=== PATIENT | female | born 2005 | race Two or more races ===

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

== ENCOUNTER 2023-06-03 15:41 | Outpatient (REF) | payer MEDICAID, SELFPAY ==
[2023-06-04 05:53] LABS: CT PCR NOT DETECTED (Not Detect.); NG PCR NOT DETECTED (Not Detect.)
== END 2023-06-03 15:42 | disposition home or self-care (01) ==
LOC: HO.HHCL 15:41
PROVIDERS: Visit Provider Internal Medicine
DX: Z00.00 Encounter for general adult medical examination without abnormal findings (principal); Z11.3 Encounter for screening for infections with a predominantly sexual mode of transmission
CPT/HCPCS: 0353U

== ENCOUNTER 2023-07-27 09:55 | Emergency (ER) | payer MEDICAID, SELFPAY ==
--- NOTE | ~2023-07-27 | US_ITS ---
EXAMINATION: US PELVIS CLINICAL INFORMATION: Vaginal bleeding/pelvic pain, rule out cyst COMPARISON: None available. TECHNIQUE: Ultrasound of the pelvis is performed using both transabdominal and transvaginal transducers along with Doppler. Transvaginal imaging is performed due to inadequate visualization transabdominally. FINDINGS: Uterus: The uterus is anteverted and measures 7.5 x 3.2 x 3.5 cm. The double wall endometrial thickness is 5 mm, homogeneous, without focal endometrial lesion identified. The uterus is smooth in contour and has normal myometrial echogenicity. No visible fibroid. Adnexa: Both ovaries are visualized. There is normal color flow to the adnexa. There is no ovarian torsion. There is no pelvic ascites or fluid collection. Right ovary measures 3.2 x 2.3 x 1.6 cm. Simple, unilocular anechoic paraovarian cyst measuring 1.7 x 1.7 x 1.6 cm for which no follow-up imaging is recommended. Left ovary measures 3.1 x 1.9 x 2.1 cm. Physiologic ovarian follicles for which no follow-up imaging is recommended. US/US pelvic and transvaginal IMPRESSION: Normal pelvic ultrasound without findings to explain abnormal uterine bleeding or pelvic pain.
[2023-07-27 10:16] VITALS: BP 102/68; PULSE 83; RESP 20; TEMP 36.6; O2SAT 100; BMI 19.6
[2023-07-27 10:33] VITALS: BP 130/70; PULSE 79; RESP 16; TEMP 36.6; O2SAT 97
--- NOTE | 2023-07-27 10:56 | ED_ITS ---
HPI - General Chief complaint: Vaginal Bleeding Stated complaint: Abd pain Time Seen by Provider: 07/27/23 10:43 Source: patient and family Mode of arrival: ambulatory Limitations: no limitations History of Present Illness HPI Narrative: 18-year-old female with no known medical history presents the ER with reports of waking with lower abdominal pain, lower back pain and vaginal bleeding this morning. Patient reports she has irregular menses but her last cycle was approximately 1 month ago. She is here with her partner. She is sexually active with 1 male partner. She is not on any contraception. Low suspicion for STI. Has used 1 tampon since waking. Related Data Home Medications Medication Instructions Recorded Confirmed No Known Home Meds 11/27/21 11/27/21 Allergies Allergy/AdvReac Type Severity Reaction Status Date / Time No Known Allergies Allergy Unverified 07/27/23 10:16 seasonal Allergy Unknown Itchy Eyes Uncoded 11/27/21 13:34 Review of Systems 2 Review of Systems: Yes all other systems are reviewed and are negative Constitutional: Constitutional: Reports no additional constitutional complaints, Denies body ache(s), Denies chills, Denies fever(s), Denies headache(s) and Denies weakness Eyes: Eyes: Reports no additional eye complaints and Denies change in vision ENT: Reports system reviewed and no additional complaints, except as documented, Denies dizziness, Denies headache(s), Denies nasal congestion, Denies nasal discharge and Denies neck pain Cardiovascular: Cardiovascular: Reports no additional cardiovascular complaints, Denies chest pain, Denies leg edema and Denies dyspnea Respiratory: Respiratory: Reports no additional respiratory complaints, Denies cough and Denies dyspnea Gastrointestinal: Gastrointestinal: Reports no additional gastrointestinal complaints, Reports abdominal pain, Denies diarrhea, Denies nausea and Denies vomiting Genitourinary: Genitourinary: Reports no additional female genitourinary complaints, Reports abnormal vaginal bleeding and Denies urinary incontinence Musculoskeletal: Musculoskeletal: Reports no additional musculoskeletal complaints, Reports back pain, Denies arthralgias, Denies joint swelling, Denies neck pain, Denies numbness and Denies tingling Integumentary/Breasts: Skin/Breast: Reports system reviewed and no additional complaints, except as docu and Denies rash Neurologic: Reports system reviewed and no additional complaints, except as documented, Denies Abnormal speech present, Denies dizziness, Denies headache(s), Denies numbness, Denies tingling and Denies weakness PMF Past Medical History Attestation statement: The following information was validated with the patient. Source: old records reviewed and nursing notes reviewed Social History Social History Smoked in Last 30 Days: No Use of substances other than those prescribed or required for medical reasons: No Advance Directives: No Advance Directives Information Provided: No Physical Exam 2 Vital Signs: Vital Signs: Last Vital Signs Temp 98 F 07/27/23 10:33 Pulse 79 07/27/23 10:33 Resp 16 07/27/23 10:33 BP 130/70 07/27/23 10:33 Pulse Ox 97 07/27/23 10:33 O2 Del Method Room Air 07/27/23 10:33 BMI result Body Mass Index 19.6 Const: General: cooperative, healthy appearing, comfortable and no acute distress Orientation/consciousness: patient oriented x3 Limitations: no limitations HEENT: Head: Yes normal to inspection Ears: hearing grossly normal bilaterally General nose exam: Normal external nose present Face and sinus: Yes normal facial exam Mouth: Normal oral and palatal mucosa present Throat: Yes posterior oropharynx normal Eyes: General: appearance normal, both eyes and all related structures P upils: Equal, round and reactive pupils present Neck: Neck: Yes normal visual inspection Chest: Chest palpation & inspection: normal inspection of the chest Resp: Effort & Inspection: normal respiratory effort Auscultation: clear to auscultation bilaterally Cardio: Rate: regular rate Rhythm: regular rhythm Peripheral pulses: P eripheral pulses 2+ throughout GI: Inspection: Yes normal to inspection Palpation (GI): Soft to palpation and nontender Auscultation: normal bowel sounds Back/Spine/Pelvis: Thoracic/Lumbar Spine: thoracic and lumbar spine normal to inspection Skin: General skin exam: no rashes or lesions noted Neuro: General: patient oriented x3, no focal motor deficits and normal sensation to monofilament Cranial nerves: Yes Equal, round and reactive pupils present Cognition (Neuro): normal cognition Speech: No Abnormal speech present Gait exam (Neuro): Normal gait present Motor exam (neuro): 5/5 motor strength present throughout Extrem: General: Yes normal to inspection Course Course Course Narrative: Labs are unremarkable. Urine shows no signs of infection and is negative for . Ultrasound is negative for any acute finding. Recommend patient use Motrin or Tylenol for any pain as needed and apply warm compresses to the abdomen and follow-up with gynecology outpatient for any continued symptoms. Patient does not have any concern for STDs at this time. Medical Decision Making Medical Decision Making [facility] Narrative: 18-year-old female with no known medical history presents the ER with reports of waking with lower abdominal pain, lower back pain and vaginal bleeding this morning. Patient reports she has irregular menses but her last cycle was approximately 1 month ago. She is here with her partner. She is sexually active with 1 male partner. She is not on any contraception. Low suspicion for STI. Has used 1 tampon since waking. No focal abdominal pain Will obtain labs, UA, ur preg Differential Diagnosis Differential Diagnoses: The differential diagnosis associated with the presentation includes Dysfunctional uterine bleeding, dysmenorrhea, ectopic Admission/Observation Consideration of admission/observation: Escalation of care including admission/observation considered Lab Data [facility] Lab Attestation statement: I reviewed the patient's lab results. 07/27/23 11:41 07/27/23 11:41 Labs: Lab Results 07/27/23 Range/Units 11:41 WBC 7.5 (4.8-10.8) X10*3/uL RBC 3.83 L (4.20-5.50) X10*6/uL Hgb 11.6 L (12.0-16.0) g/dl Hct 34.2 L (37.0-47.0) % MCV 89.3 (80.0-98.0) fL MCH 30.3 (27.0-33.0) pg MCHC 33.9 (31.0-35.0) g/dl RDW 11.9 (11.0-16.0) % Plt Count 168 (160-400) X10*3/uL MPV 11.1 (9.4-12.3) fL Immature Gran % (Auto) 0.4 (0.0-0.4) % Neut % (Auto) 78.2 H (45-73) % Lymph % (Auto) 13.1 L (20-40) % [place] % (Auto) 7.6 (2-11) % Eos % (Auto) 0.3 (0-4) % Baso % (Auto) 0.4 (0-2) % Lymph # (Auto) 1.0 L (1.2-4.9) X10*3/uL [place] # (Auto) 0.6 (0.1-1.2) X10*3/uL Eos # (Auto) 0.0 (0.0-0.4) X10*3/uL Baso # (Auto) 0.0 (0.0-0.2) X10*3/uL Abs Immat Gran (auto) 0.03 (0.00-0.03) X10*3/uL Absolute Neuts (auto) 5.8 (2.0-8.3) x10*3/uL Absolute Nucleated RBC 0.000 (0.0-0.012) X10*3/uL Nucleated RBC % (auto) 0.0 (0.0-0.2) /100WBC Sodium 140 (135-145) mmol/L Potassium 3.9 (3.3-5.1) mmol/L Chloride 110 H (96-108) mmol/L Carbon Dioxide 23 (22-29) mmol/L Anion Gap 11 L (12-20) BUN 11 (9-16) mg/dL Creatinine 0.66 (0.5-1.4) mg/dL Estim Creat Clear Calc 87.7 Estimated GFR > 60 Random Glucose 94 (60-115) mg/dL Calcium 8.9 (8.4-10.2) mg/dL Beta HCG, Quant < 2 mIU/mL Urine Color Dark Yellow Urine Appearance Turbid Urine pH 5.5 (5.0-9.0) Ur Specific [place] >= 1.030 H (1.005-1.025) Urine Protein 30 (1+) H (Neg-Trace) mg/dL Urine Glucose (UA) Negative (Negative) mg/dL Urine Ketones 15 (Negative) mg/dL Urine Blood Large (3+) H (Negative) Urine Nitrite Negative (Negative) Ur Leukocyte Esterase Negative (Negative) Urine RBC >20 H (0-2) /HPF Urine WBC 0-5 (0-5) /HPF Ur Squamous Epith Cells 3-5 (0-2) /HPF Urine Bacteria 1+ (None Seen) Hyaline Casts 0-2 (0-2) /LPF Urine Test NEGATIVE (NEGATIVE) Independent Interpretation I performed an independent interpretation of an: Ultrasound Interpretation: I independently reviewed the ultrasound agree with the radiology report Radiology Impression Discussion of test interpretation with radiology: I have reviewed the radiologist's reading. Radiologist Impression: [address] [id number] Ultrasound Report Signed Patient: Tyrel Guillermo MR#: [id number] : 2005 Acct:[id number] Age/Sex: 18 / F ADM Date: 07/27/23 Loc: .ED Attending Dr: Ordering Physician: Judy Hilario NP Date of Service: 07/27/23 Procedure(s): US pelvic and transvaginal Accession Number(s): [id number] cc: [facility]; Judy Hilario NP~ EXAMINATION: US PELVIS CLINICAL INFORMATION: Vaginal bleeding/pelvic pain, rule out cyst COMPARISON: None available. TECHNIQUE: Ultrasound of the pelvis is performed using both transabdominal and transvaginal transducers along with Doppler. Transvaginal imaging is performed due to inadequate visualization transabdominally. FINDINGS: Uterus: The uterus is anteverted and measures 7.5 x 3.2 x 3.5 cm. The double wall endometrial thickness is 5 mm, homogeneous, without focal endometrial lesion identified. The uterus is smooth in contour and has normal myometrial echogenicity. No visible fibroid. Adnexa: Both ovaries are visualized. There is normal color flow to the adnexa. There is no ovarian torsion. There is no pelvic ascites or fluid collection. Right ovary measures 3.2 x 2.3 x 1.6 cm. Simple, unilocular anechoic paraovarian cyst measuring 1.7 x 1.7 x 1.6 cm for which no follow-up imaging is recommended. Left ovary measures 3.1 x 1.9 x 2.1 cm. Physiologic ovarian follicles for which no follow-up imaging is recommended. US/US pelvic and transvaginal IMPRESSION: Normal pelvic ultrasound without findings to explain abnormal uterine bleeding or pelvic pain. Independent Historian Clinical information obtained from an independent historian. History obtained from or confirmed by: Friend Tests considered The following testing was considered but not selected: No focal abdominal pain to suggest need for CT abdomen and pelvis Prescription Management I considered prescription management with: Antibiotic Discharge Plan Discharge Clinical Impression: Dysmenorrhea Patient Disposition: Home, Self-Care Instructions: Dysmenorrhea (ED) Additional Instructions: Take Motrin or Tylenol for pain as needed Apply heat to the abdomen Follow-up with your building serviceman for any worsened symptoms Prescriptions: No Action No Known Home Meds Referrals: [facility] [Primary Care Provider] -
[2023-07-27 11:46] LABS: MANUAL DIFF FLAG NO
[2023-07-27 11:47] LABS: Basophils Percent Auto 0.4 % (0-2); Eosinophils Percent Auto 0.3 % (0-4); Hematocrit 34.2 % (37.0-47.0); Hemoglobin 11.6 g/dl (12.0-16.0); Imm Gran Abs Auto 0.03 X10*3/uL (0.00-0.03); Imm Gran Pct Auto 0.4 % (0.0-0.4); Lymphocytes Percent Auto 13.1 % (20-40); Mean Corpuscular HGB Conc 33.9 g/dl (31.0-35.0); Mean Corpuscular Hemoglobin 30.3 pg (27.0-33.0); Mean Corpuscular Volume 89.3 fL (80.0-98.0); Mean Platelet Volume 11.1 fL (9.4-12.3); Monocytes Absolute Auto 0.6 X10*3/uL (0.1-1.2); Monocytes Percent Auto 7.6 % (2-11); Neutrophils Absolute Auto 5.8 x10*3/uL (2.0-8.3); Neutrophils Percent Auto 78.2 % (45-73); Platelet Count 168 X10*3/uL (160-400); Red Blood Count 3.83 X10*6/uL (4.20-5.50); Red Cell Distribution Width 11.9 % (11.0-16.0); White Blood Count 7.5 X10*3/uL (4.8-10.8)
[2023-07-27 11:50] LABS: Appearance Urine Turbid; Color Urine Dark Yellow; Glucose Urine UA Negative (Negative); Leukocyte Esterase Urine Negative (Negative); Nitrite Urine Negative (Negative); PH 5.5 (5.0-9.0); Specific Gravity - Urine >= 1.030 (1.005-1.025); UMIC TRIGGER UACC YES; Urine Blood Large (3+) (Negative); Urine Ketones 15 mg/dL (Negative); Urine Protein 30 (1+) mg/dL (Neg-Trace)
[2023-07-27 11:51] LABS: UPreg QC Valid YES; Urine Pregnancy NEGATIVE (NEGATIVE)
--- NOTE | 2023-07-27 12:00 | PC.NURSE ---
pt brought to ultrasound
[2023-07-27 12:04] LABS: Bacteria Urine 1+ (None Seen); Hyaline Casts Urine 0-2 /LPF (0-2); RBC Urine >20 /HPF (0-2); WBC Urine 0-5 /HPF (0-5)
[2023-07-27 12:05] LABS: Anion Gap 11 (12-20); Blood Urea Nitrogen 11 mg/dL (9-16); Calcium 8.9 mg/dL (8.4-10.2); Carbon Dioxide 23 mmol/L (22-29); Chloride 110 mmol/L (96-108); Creatinine Clr Calc Pharmacy 87.7; Estimated Glomerular Filt Rate > 60; Glucose Random 94 mg/dL (60-115); Potassium 3.9 mmol/L (3.3-5.1); Sodium 140 mmol/L (135-145)
[2023-07-27 12:07] LABS: HCG Quantitative < 2 mIU/mL
--- NOTE | 2023-07-27 13:01 | PC.NURSE ---
remains in ultrasound
== END 2023-07-27 15:27 | disposition home or self-care (01) ==
PROVIDERS: Nurse Practitioner Family; Emergency Provider Emergency Medicine
DX: N94.6 Dysmenorrhea, unspecified (principal); R10.30 Lower abdominal pain, unspecified; M54.50 Low back pain, unspecified; N93.9 Abnormal uterine and vaginal bleeding, unspecified; R10.2 Pelvic and perineal pain; Z79.899 Other long term (current) drug therapy
CPT/HCPCS: 36415; 76830; 76856; 80048; 81001; 81025; 84702; 85025; 99284

== ENCOUNTER 2023-10-25 17:47 | Emergency (ER) | payer MEDICAID, SELFPAY ==
--- NOTE | ~2023-10-25 | US_ITS ---
EXAMINATION: US OBSTETRICAL ULTRASOUND CLINICAL INFORMATION: Reason for Exam pain, +hcg test, vag bleed COMPARISON: 07/27/2023 TECHNIQUE: Sonographic evaluation of the pelvis was performed transabdominally and transvaginally. FINDINGS: There is a single intrauterine gestational sac with visible yolk sac, embryo/fetus, and cardiac activity. There is no significant subchorionic hemorrhage or hematoma. HR: 112 beats per minute. CRL (crown rump length): 0.3 cm (5 weeks 6 days +/- 4 days). EMRE (estimated date of delivery): 06/20/2024 +/- 4 days. MATERNAL ADNEXA: The right maternal ovary measures 3.7 x 2.5 x 3.5 and appears unremarkable. The left maternal ovary measures 2.4 x 2.1 x 1.9 and appears unremarkable. There is no significant maternal adnexal mass. No maternal pelvic ascites. US/US OB <= 14 weeks fetus IMPRESSION: 1. Single intrauterine gestation with ultrasound gestational age of 5 weeks 6 days +/- 4 days. 2. Estimated date of delivery is 06/20/2024 +/- 4 days. 3. No maternal adnexal mass or pelvic ascites.
[2023-10-25 18:25] VITALS: BP 111/73; PULSE 122; RESP 16; TEMP 36.9; O2SAT 98; BMI 19.9
--- NOTE | 2023-10-25 18:28 | ED.PREGNANCY ---
HPI - General Chief complaint: Nausea/Vomiting/Diarrhea Stated complaint: vomiting Time Seen by Provider: 10/26/23 06:37 Source: patient Mode of arrival: ambulatory Limitations: no limitations History of Present Illness ED Provider: Mitzi Maldonado PA-C HPI Narrative: Patient is a 18 year old assigned female at with a history of presenting to the emergency department today with nausea and vomiting. Patient states that over the last few days she has had nausea and vomiting. Patient states that she is , approximately 5 weeks. Patient states that she had some previous spotting but no vaginal bleeding now. Patient denies any dizziness, lightheadedness, abdominal pain, fever, chills, blurry vision, double vision, loss of vision, chest pain, difficulty breathing, shortness of breath, back pain, night sweats, pain with urination, increased urinary frequency, increased urinary urgency, blood in her urine or stool, syncope or a near syncopal episode, recent trauma or falls, bowel incontinence, bladder incontinence, bowel retention, bladder retention, or any other complaints at this time. Onset (ago): day(s) Severity: mild Severity scale (1-10): 2 Relieving factors: none Exacerbating factors: none Associated symptoms: nausea and vomiting Related Data Previous Rx's ?Medication ?Instructions ?Recorded cefuroxime axetil 250 mg tablet 250 mg PO BID 7 days #14 tabs 10/26/23 ondansetron 4 mg disintegrating 4 mg PO Q8H 3 days #9 tabs 10/26/23 tablet pyridoxine (vitamin B6) 10 mg 10 mg PO DAILY #14 tabs 10/26/23 tablet Allergies Allergy/AdvReac Type Severity Reaction Status Date / Time No Known Allergies Allergy Unverified 10/25/23 18:26 seasonal Allergy Unknown Itchy Eyes Uncoded 10/25/23 18:26 Review of Systems Constitutional: Constitutional: Reports no additional constitutional complaints, Denies chills, Denies fever(s) and Denies night sweats Eyes: Eyes: Reports no additional eye complaints, Denies blurry vision, Denies change in vision, Denies diplopia, Denies eye discharge, Denies loss of vision and Denies eye pain ENT: Denies dizziness Cardiovascular: Cardiovascular: Reports no additional cardiovascular complaints, Denies chest pain, Denies lightheadedness, Denies Loss of Consciousness and Denies dyspnea Respiratory: Respiratory: Reports no additional respiratory complaints and Denies dyspnea Gastrointestinal: Gastrointestinal: Reports no additional gastrointestinal complaints, Denies abdominal pain, Denies melena, Denies hematochezia, Denies change in bowel habits, Denies change in stool character, Reports nausea and Reports vomiting Genitourinary: Genitourinary: Denies hematuria, Denies urinary frequency, Denies dysuria, Denies urinary incontinence, Denies urinary hesitancy and Denies urinary urgency Musculoskeletal: Musculoskeletal: Reports no additional musculoskeletal complaints, Denies numbness and Denies tingling Neurologic: Denies dizziness, Denies loss of vision, Denies numbness and Denies tingling Psychiatric: Psychiatric: Reports no additional psychiatric complaints Endocrine: Endocrine: Reports no additional endocrine complaints Hematologic/Lymphatic: Hematologic/Lymphatic: Reports no additional hematologic/lymphatic complaints Allergic/Immunologic: Allergic/Immunologic: Reports no additional allergic/immunologic complaints PMFSH Past Medical History Attestation statement: The following information was validated with the patient. Source: old records reviewed and nursing notes reviewed Social History Social History Advance Directives: No Advance Directives Information Provided: Yes Physical Exam Vital Signs: Vital Signs: Last Vital Signs Temp 98.8 F 10/26/23 07:35 Pulse 87 10/26/23 07:35 Resp 14 10/26/23 07:35 BP 95/54 L 10/26/23 07:35 Pulse Ox 97 10/26/23 07:35 O2 Del Method Room Air 10/26/23 07:35 BMI result Body Mass Index 19.9 Const: General: cooperative, no acute distress, alert and awake Nutritional Appearance: well nourished Orientation/consciousness: patient oriented x3 Limitations: no limitations HEENT: Head: Yes normal to inspection and Yes atraumatic Ears: hearing grossly normal bilaterally and external ears normal General nose exam: Normal external nose present, no nasal discharge noted and no epistaxis Face and sinus: Yes normal facial exam, No abrasion and No laceration Mouth: Normal oral and palatal mucosa present, no drooling and no muffled voice Eyes: General: appearance normal, both eyes and all related structures Periorbital: periorbital findings normal Eyelids: Yes eyelids normal Conjunctivae: conjunctivae normal Pupils: Equal, round and reactive pupils present EOM: EOMs intact bilaterally Neck: Neck: Yes normal visual inspection, Yes full ROM and Yes no lymphadenopathy Chest: Chest palpation & inspection: normal inspection of the chest Resp: Effort & Inspection: normal respiratory effort and able to speak in complete sentences GI: Inspection: Yes normal to inspection Palpation (GI): Soft to palpation, not firm, nontender, no guarding and not rigid Neuro: General: patient oriented x3 and moves all extremities Cranial nerves: Yes Equal, round and reactive pupils present Cognition (Neuro): normal cognition Motor exam (neuro): 5/5 motor strength present throughout Sensory Exam: Normal double simultaneous stimulation for sensation Coordination: [id number] test normal Extrem: General: Yes normal to inspection, Yes full ROM and Yes capillary refill normal Psych: Appearance: grossly normal Mental Status: mental status grossly normal Affect: normal affect Attitude: cooperative Thought process: Normal thought process present Thought content: Normal thought content present Insight: Good insight present (Psych) Course Course Course Narrative: This is an RME: Additional HPI, ROS, PE not included below will be deferred to primary provider. RME assessment and note performed by: Li Garcia PA-C This is a 27-[id number]-female, , who presents to the ER with complaints of nausea, vomiting, vaginal bleeding, and lower abdominal cramping. Reporting +HCG test. LMP August 27. Plan: Labs, US Medications Administered Discontinued Medications Generic Name Dose Route Start Last Admin Trade Name Freq PRN Reason Stop Dose Admin Ondansetron HCl 4 mg 10/25/23 22:37 10/25/23 22:39 Ondansetron Odt 4 Mg Tab.Rapdis TRANSLINGU 10/25/23 22:38 4 mg ONCE ONE Administration Ondansetron HCl 4 mg 10/26/23 05:01 10/26/23 05:06 Ondansetron Odt 4 Mg Tab.Rapdis TRANSLINGU 10/26/23 05:02 4 mg ONCE ONE Administration Medical Decision Making Medical Decision Making MDM Narrative: Patient is a 18 year old assigned female at with a history of presenting to the emergency department today with nausea and vomiting. Patient's physical exam was unremarkable. Patient's blood work was unremarkable. Patient's urine showed a possible UTI, given patient's status, will treat. Patient's US showed a single intrauterine measuring approximately 5 weeks and 6 days. I explained my physical exam findings as well as all test results to the patient. I answered all questions asked by the patient. I stressed the importance of the patient taking her medication as prescribed. I stressed the importance of the patient following up with her primary care provider and an OBGYN. I stressed the importance of the patient returning to the emergency department immediately if her symptoms were to worsen or if she were to develop any dizziness, shortness of breath, difficulty breathing, chest pain, blurry vision, loss of vision, nausea, vomiting, abdominal pain, fever, chills, back pain, or any other complaints. Patient verbalized agreement and understanding with this treatment plan and discharge. Differential Diagnosis Differential Diagnoses: The differential diagnosis associated with the presentation includes Nausea Vomiting UTI Admission/Observation Consideration of admission/observation: Escalation of care including admission/observation considered Patient would have been admitted to the hospital had her work up had any findings where hospital admission was appropriate and her clinical presentation warranted hospital admission. Lab Data [facility] Lab Attestation statement: I reviewed the patient's lab results. My interpretation of these results are in the [facility] Rationale portion of this note. 10/25/23 18:39 10/25/23 18:39 Labs: Lab Results 10/25/23 10/26/23 Range/Units 18:39 05:44 WBC 8.6 (4.8-10.8) X10*3/uL RBC 4.59 (4.20-5.50) X10*6/uL Hgb 14.1 D (12.0-16.0) g/dl Hct 40.4 (37.0-47.0) % MCV 88.0 (80.0-98.0) fL MCH 30.7 (27.0-33.0) pg MCHC 34.9 (31.0-35.0) g/dl RDW 11.9 (11.0-16.0) % Plt Count 242 D (160-400) X10*3/uL MPV 10.8 (9.4-12.3) fL Immature Gran % (Auto) 0.4 (0.0-0.4) % Neut % (Auto) 73.5 H (45-73) % Lymph % (Auto) 13.9 L (20-40) % [place] % (Auto) 10.6 (2-11) % Eos % (Auto) 0.7 (0-4) % Baso % (Auto) 0.9 (0-2) % Lymph # (Auto) 1.2 (1.2-4.9) X10*3/uL [place] # (Auto) 0.9 (0.1-1.2) X10*3/uL Eos # (Auto) 0.1 (0.0-0.4) X10*3/uL Baso # (Auto) 0.1 (0.0-0.2) X10*3/uL Abs Immat Gran (auto) 0.03 (0.00-0.03) X10*3/uL Absolute Neuts (auto) 6.3 (2.0-8.3) x10*3/uL Absolute Nucleated RBC 0.000 (0.0-0.012) X10*3/uL Nucleated RBC % (auto) 0.0 (0.0-0.2) /100WBC Sodium 135 (135-145) mmol/L Potassium 4.8 D (3.3-5.1) mmol/L Chloride 105 (96-108) mmol/L Carbon Dioxide 13 L (22-29) mmol/L Anion Gap 22 H (12-20) BUN 11 (9-16) mg/dL Creatinine 0.75 (0.5-1.4) mg/dL Estim Creat Clear Calc 77.2 Estimated GFR > 60 Random Glucose 73 (60-115) mg/dL Calcium 10.2 D (8.4-10.2) mg/dL Total Bilirubin 1.2 H (0.0-1.0) mg/dL Direct Bilirubin 0.4 (0.0-0.5) mg/dL AST 19 (5-31) U/L ALT 13 (0-31) U/L Alkaline Phosphatase 50 (39-117) U/L Total Protein 8.9 H (6.5-8.0) g/dL Albumin 4.9 (3.5-5.0) g/dL Urine Color Yellow Urine Appearance Cloudy Urine pH 5.5 (5.0-9.0) Ur Specific [place] 1.025 (1.005-1.025) Urine Protein 30 (1+) H (Neg-Trace) mg/dL Urine Glucose (UA) Negative (Negative) mg/dL Urine Ketones >=160 (Negative) mg/dL Urine Blood Small (1+) H (Negative) Urine Nitrite Negative (Negative) Ur Leukocyte Esterase Trace H (Negative) Urine RBC 3-5 H (0-2) /HPF Urine WBC 6-10 H (0-5) /HPF Ur Squamous Epith Cells 11-20 (0-2) /HPF Urine Bacteria 1+ (None Seen) Hyaline Casts 11-20 (0-2) /LPF Granular Casts Present Blood Type AB Positive Independent Interpretation I performed an independent interpretation of an: Ultrasound Interpretation: My interpretation is in agreement with the radiologist's impression of this imaging study. EXAMINATION: US OBSTETRICAL ULTRASOUND CLINICAL INFORMATION: Reason for Exam pain, +hcg test, vag bleed COMPARISON: 07/27/2023 TECHNIQUE: Sonographic evaluation of the pelvis was performed transabdominally and transvaginally. FINDINGS: There is a single intrauterine gestational sac with visible yolk sac, embryo/fetus, and cardiac activity. There is no significant subchorionic hemorrhage or hematoma. HR: 112 beats per minute. CRL (crown rump length): 0.3 cm (5 weeks 6 days +/- 4 days). EMRE (estimated date of delivery): 06/20/2024 +/- 4 days. MATERNAL ADNEXA: The right maternal ovary measures 3.7 x 2.5 x 3.5 and appears unremarkable. The left maternal ovary measures 2.4 x 2.1 x 1.9 and appears unremarkable. There is no significant maternal adnexal mass. No maternal pelvic ascites. US/US OB <= 14 weeks fetus IMPRESSION: 1. Single intrauterine gestation with ultrasound gestational age of 5 weeks 6 days +/- 4 days. 2. Estimated date of delivery is 06/20/2024 +/- 4 days. 3. No maternal adnexal mass or pelvic ascites. Dictated By: Quirino Garvey MD Signed By: Electronically signed by Quirino Garvey MD 10/25/232136 Radiology Impression Discussion of test interpretation with radiology: I have reviewed the radiologist's reading. Prescription Management I considered prescription management with: Antibiotic (patient prescribed an antibiotic for possible UTI given status) and Other (patient prescribed an antiemetic) Discharge Plan Discharge Clinical Impression: , Nausea & vomiting, UTI (urinary tract infection) Patient Disposition: Home, Self-Care Instructions: (ED), Acute Nausea and Vomiting (ED) Additional Instructions: Use the Pyridoxine for nausea / vomiting, FIRST. If your symptoms persist after that, use the Ondansetron. Follow up with your primary care provider and an OBGYN. Return to the emergency department immediately if your symptoms worsen or if you develop any dizziness, shortness of breath, difficulty breathing, chest pain, blurry vision, loss of vision, nausea, vomiting, abdominal pain, fever, chills, back pain, or any other complaints. Prescriptions: New ondansetron 4 mg tablet,disintegrating 4 mg PO Q8H 3 Days Qty: 9 0RF pyridoxine (vitamin B6) 10 mg tablet 10 mg PO DAILY Qty: 14 0RF cefuroxime axetil 250 mg tablet 250 mg PO BID 7 Days Qty: 14 0RF Referrals: [facility] [Provider Group] (Call to establish and follow up with a primary care provider. If you already have a primary care provider, please follow up with them.) [facility] [Provider Group] [facility] [Provider Group] Shakeel Olivas MD [Physician] - (Call to establish and follow up with an OBGYN.) Interventions: ED Discharge Assessment Last Done: 10/26/23 07:35 Discharge Date/Time: 10/26/23 07:36 Print Language: Danish
[2023-10-25 18:46] LABS: MANUAL DIFF FLAG NO
[2023-10-25 18:48] LABS: Basophils Absolute Auto 0.1 X10*3/uL (0.0-0.2); Basophils Percent Auto 0.9 % (0-2); Eosinophils Absolute Auto 0.1 X10*3/uL (0.0-0.4); Eosinophils Percent Auto 0.7 % (0-4); Hematocrit 40.4 % (37.0-47.0); Hemoglobin 14.1 g/dl (12.0-16.0); Imm Gran Abs Auto 0.03 X10*3/uL (0.00-0.03); Imm Gran Pct Auto 0.4 % (0.0-0.4); Lymphocytes Absolute Auto 1.2 X10*3/uL (1.2-4.9); Lymphocytes Percent Auto 13.9 % (20-40); Mean Corpuscular HGB Conc 34.9 g/dl (31.0-35.0); Mean Corpuscular Hemoglobin 30.7 pg (27.0-33.0); Mean Platelet Volume 10.8 fL (9.4-12.3); Monocytes Absolute Auto 0.9 X10*3/uL (0.1-1.2); Monocytes Percent Auto 10.6 % (2-11); Neutrophils Absolute Auto 6.3 x10*3/uL (2.0-8.3); Neutrophils Percent Auto 73.5 % (45-73); Platelet Count 242 X10*3/uL (160-400); Red Blood Count 4.59 X10*6/uL (4.20-5.50); Red Cell Distribution Width 11.9 % (11.0-16.0); White Blood Count 8.6 X10*3/uL (4.8-10.8)
[2023-10-25 19:11] LABS: Alanine Aminotransferase 13 U/L (0-31); Albumin Level 4.9 g/dL (3.5-5.0); Alkaline Phosphatase 50 U/L (39-117); Anion Gap 22 (12-20); Aspartate Amino Transferase 19 U/L (5-31); Bilirubin Direct 0.4 mg/dL (0.0-0.5); Bilirubin Total 1.2 mg/dL (0.0-1.0); Blood Urea Nitrogen 11 mg/dL (9-16); Calcium 10.2 mg/dL (8.4-10.2); Carbon Dioxide 13 mmol/L (22-29); Chloride 105 mmol/L (96-108); Creatinine Clr Calc Pharmacy 77.2; Estimated Glomerular Filt Rate > 60; Glucose Random 73 mg/dL (60-115); Potassium 4.8 mmol/L (3.3-5.1); Sodium 135 mmol/L (135-145); Total Protein 8.9 g/dL (6.5-8.0)
[2023-10-25 22:35] VITALS: BP 103/64; PULSE 96; RESP 14; TEMP 36.5; O2SAT 100
[2023-10-25] MEDS: Ondansetron ODT 4 MG TAB.RAPDIS TRANSLINGU (22:39)
[2023-10-26] MEDS: Ondansetron ODT 4 MG TAB.RAPDIS TRANSLINGU (05:06)
[2023-10-26 05:49] LABS: Appearance Urine Cloudy; Color Urine Yellow; Glucose Urine UA Negative (Negative); Leukocyte Esterase Urine Trace (Negative); Nitrite Urine Negative (Negative); PH 5.5 (5.0-9.0); Specific Gravity - Urine 1.025 (1.005-1.025); UMIC TRIGGER UACC YES; Urine Blood Small (1+) (Negative); Urine Ketones >=160 mg/dL (Negative); Urine Protein 30 (1+) mg/dL (Neg-Trace)
[2023-10-26 06:13] LABS: Bacteria Urine 1+ (None Seen); Granular Casts Urine Present; UACC Culture Trigger YES
[2023-10-26 06:23] VITALS: BP 100/57; PULSE 87; RESP 14; TEMP 37.3; O2SAT 98
[2023-10-26 07:35] VITALS: BP 95/54; PULSE 87; RESP 14; TEMP 37.1; O2SAT 97
== END 2023-10-26 07:36 | disposition home or self-care (01) ==
PROVIDERS: Physician Assistant Medical; Emergency Provider Student in an Organized Health Care Education/Training Program
DX: O23.41 Unspecified infection of urinary tract in pregnancy, first trimester (principal); O20.9 Hemorrhage in early pregnancy, unspecified; O21.9 Vomiting of pregnancy, unspecified; Z3A.01 Less than 8 weeks gestation of pregnancy
CPT/HCPCS: 36415; 76801; 80048; 80076; 81001; 85025; 86900; 86901; 87086; 99283; 99284

== ENCOUNTER 2024-02-18 04:56 | Emergency (ER) | payer MEDICAID, SELFPAY ==
[2024-02-18] VITALS (7 sets, daily range): BP systolic 99–119; BP diastolic 52–83; PULSE 108–124; RESP 16–18; TEMP 36.9–37.7; O2SAT 97–99; BMI 22.2
--- NOTE | ~2024-02-18 | US_ITS ---
EXAMINATION: US TRIPLEX LOWER EXTREMITY, BILATERAL CLINICAL INFORMATION: Lower extremity pain and swelling COMPARISON: None available. TECHNIQUE: Color-flow triplex imaging with spectral analysis and compression Doppler were performed on the bilateral lower extremities. FINDINGS: Respiratory variation, normal compression and augmented flow are noted throughout the bilateral lower extremities. The visualized common femoral vein, superficial femoral vein, profunda femoral vein, popliteal vein and midcalf peroneal and posterior tibial venous segments show no evidence of deep venous thrombosis bilaterally. There is no Anthony's cyst. US/US venous duplex LE BI IMPRESSION: No evidence of deep venous thrombosis involving the bilateral lower extremities. Electronically signed by: Brunilda Rothman MD 02/18/2024 11:46 AM EDT Workstation: [id number]
--- NOTE | ~2024-02-18 | US_ITS ---
EXAMINATION: US RENAL B/L CLINICAL INFORMATION: Acute flank pain, , concern for stone COMPARISON: None available. TECHNIQUE: Real-time imaging of the kidneys and bladder. FINDINGS: RIGHT KIDNEY: 9.9 x 5.3 x 5.1 cm (SAG x AP x TRV). The kidney is normal in size, contour, and echogenicity. Renal cortical thickness is normal. No calculi or focal parenchymal lesions. Mild to moderate right-sided hydronephrosis. Right ureter could not be visualized due to overlying bowel gas. LEFT KIDNEY: 10.8 x 5.5 x 4.7 cm (SAG x AP x TRV). The kidney is normal in size, contour, and echogenicity. Renal cortical thickness is normal. No calculi or focal parenchymal lesions. No hydronephrosis. BLADDER: Partially distended. Bilateral ureteral jets are not visualized. US/US renal BI IMPRESSION: [id number] right-sided hydronephrosis. No renal calculus. Right ureter could not be visualized due to overlying bowel gas. Bilateral ureteral jets are not visualized. Electronically signed by: Louis Mendoza MD 02/18/2024 08:56 AM EDT
--- OUTSIDE RECORDS SUMMARY | 2024-02-18 05:55 | XMS_ITS | Continuity of Care Document ---
Author Organization [facility] ter Address [address] [place] [address]- Care Team Providers Care Mobile Unit Assistant Name Role Phone Moses Lam MD, Lida Crump Primary Care Physici an Encounter [facility] [place] [facility] Date(s): 12/10/23 - 12/10/[address] [id number] Attending Physician: Kyaw Rogers MD Allergies, Adverse Reactions, Alerts No Known Allergies Medications PNV By Mouth, Daily, 0 Refills, Maintenance, 12/10/23 8:44:00 EDT, Partial fill upon patient request ifthe prescription is for a schedule II opioid drug. Start Date: 12/10/23 Status: Ordered Multivitamins with Folic Acid 1 mg oral tablet 1 tablet, By Mouth, Daily, # 90 tablet, 2 Refills, Maintenance, 12/10/23 8:58:00 EDT, [id number], Partial fill upon patient request if the prescription is for a schedule II opioid drug., 1 tablet By Mouth Daily, 149, cm, 12/10/23 8:32:00 EDT,... Start Date: 12/10/23 Status: Ordered pyridoxine 25 mg oral tablet 1 tablet = 25 mg, By Mouth, 3 times a day, for 14 days, # 42 tablet, 1 Refills, Acute 01/07/24 8:58:00 EDT, 12/10/23 8:58:00 EDT, Tablet, [id number], Partial fill upon patient request if the prescription is for a schedule II opioid drug., 149,... Start Date: 12/10/23 Stop Date: 01/07/24 Status: Ordered Unisom 25 mg oral tablet 1 tablet = 25 mg, By Mouth, Daily at bedtime, PRN for sleep, # 16 tablet, 0 Refills, Acute 248:58:00 EDT, 12/10/23 8:58:00 EDT, Tablet, [facility]/pharmacy #[id number], Partial fill upon patient request ifthe prescription is for a schedule II opioid drug.,... Start Date: 12/10/23 Stop Date: 12/30/23 Status: Ordered Zofran ODT 4 mg oral tablet, disintegrating 1 tablet, By Mouth, Every 8 hours, PRN as needed for nausea/vomiting, 0 Refills, Maintenance, 12/10/23 8:44:00 EDT, DIS Tablet, Partial fill upon patient request if the prescription is for a scheduleII opioid drug. Start Date: 12/10/23 Status: Ordered Problem List Condition Confirmation Course Effective Dates Status Health St atus Informant Asthma Exercised induced Confirmed Active Social History Social History Type Response Smoking Status Never (less than 100 in lifetime) entered on: 12/10/23 Sex Patient Care team information Care Team Personnel Name: Moses Lam MD, Lida Crump Position: [facility] Outreach Member Role: PCP Address: Address: [address] [place] [address] [address] [place] [address]- Care Team Related Persons Name: SURI DREW
--- OUTSIDE RECORDS SUMMARY | 2024-02-18 05:55 | XMS_ITS | Continuity of Care Document ---
[facility] Address [address] [place] [address], [address] [place] [address]- Care Team Providers Care Distributor Sales Consultant Name Role Phone Moses Lam MD, Lida Crump Primary Care Physici an Encounter [facility] Date(s): 08/27/23 - 09/26/23 [facility] Alexei [facility]essa[facility] [address] [facility], [address] [place] [address]- Attending Physician: Admdipesh, Ar8 Admitting Physician: Admtr, Ar8 Referring Physician: Admtr, Ar8 Patient Care team information Care Team Personnel Name: Moses Lam MD, Lida Crump Position: [facility] Outreach Member Role: PCP Address: Address: [address] [place] [address] [address] [place] [address]- Care Team Related Persons Name: SURI DREW
--- OUTSIDE RECORDS SUMMARY | 2024-02-18 05:55 | XMS_ITS | Continuity of Care Document ---
Author Organization [facility] Address [address] [facility], [address] [place] [address]- Care Team Providers Care Surgical Rn Name Role Phone Moses Lam MD, Lida Crump Primary Care Physici an [facility] [id number] Date(s): 12/12/23 - 01/11/24 [facility]ka [facility] [employer] [address] [facility] [facility], 4th [place] [address]- Allergies, Adverse Reactions, Alerts No Known Allergies Medications Colace sodium 100 mg oral capsule 100 mg, 1, capsule, By Mouth, 2 times a day, PRN, # 20 capsule, Refills 0, Tot. Refills 0, Maintenance, for constipation, 12/17/23 12:54:00 EDT, Route to Pharmacy Electronically, [facility]/pharmacy #[id number], Partial fill upon patient request if the prescriptio... Start Date: 12/17/23 Status: Ordered ferrous fumarate 324 mg oral tablet See Instructions, 1 tablet By Mouth every other day, # 90 tablet, 1 Refills, Maintenance, 12/12/23 15:14:00 EDT, Tablet, [facility]/pharm[facility] #[id number], Partial fill upon patient request if the prescription is for a schedule II opioid drug., 149, cm, 12/10/23 8:3... Start Date: 12/12/23 Status: Ordered PNV By Mouth, Daily, 0 Refills, Maintenance, [...] days, # 42 tablet, 1 Refills, Acute 02/04/24 8:58:00 EDT, 01/07/24 8:58:00 EDT, Tablet, [id number], Partial fill upon patient request if the prescription is for a schedule II opioid drug., 149,... Start Date: 01/07/24 Stop Date: 02/04/24 Status: Ordered Unisom 25 mg oral tablet 1 tablet = 25 mg, By Mouth, Daily at bedtime, PRN for sleep, # 16 tablet, 0 Refills, Maintenance, 12/30/23 8:58:00 EDT, Tablet, [id number], Partial fill upon patient request if the prescription is for a schedule II opioid drug., 149, cm, 12/16... Start Date: 12/30/23 Status: Ordered Zofran ODT 4 [...] 100 in lifetime) entered on: 12/10/23 Sex Female Patient Care team information Care Team Personnel Name: Lida Araiza MD Position: [facility] Outreach Member Role: PCP Address: Address: [address] [place] [address] [address] [place] [address]- Care Team Related Persons Name: SURI DREW
--- OUTSIDE RECORDS SUMMARY | 2024-02-18 05:55 | XMS_ITS | Continuity of Care Document ---
Author Organization [facility] Address [address] [place] [address]- Care Team Providers Care Systems Engineering Manager Name Role Phone Moses Lam MD, Lida Crump Primary Care Physici an Encounter [facility] Date(s): 12/17/23 - 02/13/[address] [address]- Attending Physician: Not on Staff, Attending MD Allergies, Adverse Reactions, Alerts No Known Allergies Medications Colace sodium 100 mg oral capsule 100 mg, 1, capsule, By Mouth, 2 times a day, PRN, # 20 capsule, Refills 0, Tot. Refills 0, Maintenance, for constipation, 12/17/23 12:54:00 EDT, Route to Pharmacy Electronically, [facility]/pharmacy #[id number], Partial fill upon patient request if the prescriptio... Start Date: 12/17/23 Status: Ordered ferrous fumarate 324 mg oral tablet See Instructions, 1 tablet By Mouth every other day, # 90 tablet, 1 Refills, Maintenance, 12/12/23 15:14:00 EDT, Tablet, [facility]/pharmacy #[id number], Partial fill upon patient request if [...] 8:32:00 EDT,... Start Date: 12/10/23 Status: Ordered Unisom 25 mg oral tablet [...] Team Personnel Name: Lida Araiza MD Position: [facility] Outreach Member Role: PCP Address: Address: [address] [place] [address] [address] [place] [address]- Care Team Related Persons Name: SURI DREW
--- OUTSIDE RECORDS SUMMARY | 2024-02-18 05:55 | XMS_ITS | Continuity of Care Document ---
Author Organization [facility] Address [address] [place] [address]- Care Team Providers Care Petroleum Supply Specialist Name Role Phone Moses Lam MD, Lida Crump Primary Care Physici an [facility] Date(s): 11/14/23 - 12/14/[address] [address]- Allergies, Adverse Reactions, Alerts No Known Allergies Medications ferrous fumarate 324 mg oral tablet See Instructions, 1 tablet By Mouth every other day, # 90 tablet, 1 Refills, Maintenance, 12/12/23 15:14:00 EDT, Tablet, [id number], Partial fill upon [...] Acute 248:58:00 EDT, 12/10/23 8:58:00 EDT, Tablet, [id number], Partial fill upon patient request ifthe [...] Team Personnel Name: Lida Araiza MD [facility] Outreach Member Role: PCP Address: Address: [address] [place] [address] [address] [place] [address]- Care Team Related Persons Name: SURI DREW
--- OUTSIDE RECORDS SUMMARY | 2024-02-18 05:55 | XMS_ITS | Continuity of Care Document ---
Author [facility] Address [address] [place] [address], [address] [place] [address]- Care Team Providers Care Stereo Map Plotter Operator Name Role Phone Lida Araiza MD Primary Care Physici an [id number] Date(s): 06/06/23 - [facility] [address], [address] [place] [address]- Patient Care team information Care Team Personnel Name: Moses Lam MD, Lida Crump Position: [facility] Outreach Member Role: PCP Address: Address: [address] [place] [address] [address] [place] [address]- Care Team Related Persons Name: SURI DREW
--- OUTSIDE RECORDS SUMMARY | 2024-02-18 05:55 | XMS_ITS | Continuity of Care Document ---
Author Organization [facility] Address [address] [place] [address]- Care Team Providers Care Filter Screen Cleaner Name Role Phone Moses Lam MD, Lida Crump Primary Care Physici an [place] [facility] [place]18[place]23 - 09/26/23 [facility] [address] [place] [address]- [place] Attending Physician: Not on Staff, Attending MD Referring Physician: Lida Araiza MD Patient Care team information Care Team Personnel Name: Lida Araiza MD Position: [facility] Outreach Member Role: PCP Address: Address: [address] [place] [address] [address] [place] [address]- Care Team Related Persons Name: SURI DREW
--- OUTSIDE RECORDS SUMMARY | 2024-02-18 05:55 | XMS_ITS | Continuity of Care Document ---
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 Refills 0, Maintenance, for constipation, 12/17/23 12:54:00 EDT, Route to Pharmacy Electronically, [facility]/pharmacy #[id number], Partial fill upon patient request if the prescriptio... Start Date: 12/17/23 Status: Ordered ferrous fumarate 324 mg oral tablet See Instructions, 1 tablet By Mouth every other day, # 90 tablet, 1 Refills, Maintenance, 12/12/23 15:14:00 EDT, Tablet, [facility]/pharmacy #[id number], Partial fill upon patient request if [...] tablet, 2 Refills, Maintenance, 12/10/23 8:58:00 EDT, [facility]/pharmacy #[id number], Partial fill upon patient request if [...] 0 Refills, Maintenance, 12/30/23 8:58:00 EDT, Tablet, [facility]/pharmacy #[id number], Partial fill upon patient request if [...] Team Personnel Name: Lida Araiza MD Position: [facility] Outreach Member Role: PCP Address: Address: [address] [place] [address] [address] [place] [address]- Care Team Related Persons Name: SURI DREW
[2024-02-18 06:07] LABS: Influenza A PCR NEGATIVE (Negative); Influenza B PCR NEGATIVE (Negative); Resp Syncy Virus RNA Qual PCR NEGATIVE (Negative); SARS COV2 PCR INHOUSE NEGATIVE (Negative)
--- NOTE | 2024-02-18 06:40 | ED_ITS ---
HPI - General Adult General Chief complaint: Upper Respiratory Symptoms Stated complaint: gen med Time Seen by Provider: 02/18/24 06:39 Source: patient and other (patient's partner) Mode of arrival: ambulatory Limitations: no limitations History of Present Illness ED Provider: Mitzi Maldonado PA-C HPI narrative: Patient is a 18 year old assigned female at with a history of current (20 weeks) presenting to the emergency department today with right sided low back pain, nasal congestion, and a headache. Patient states that yesterday she began to have right sided low back pain and a headache with congestion. Patient denies any dizziness, lightheadedness, abdominal pain, nausea, vomiting, fever, chills, blurry vision, double vision, loss of vision, chest pain, difficulty breathing, shortness of breath, night sweats, pain with urination, increased urinary frequency, increased urinary urgency, blood in her urine or stool, syncope or a near syncopal episode, recent trauma or falls, bowel incontinence, bladder incontinence, or any other complaints at this time. Onset (ago): day(s) (1) Location: back and left Relieving factors: none Exacerbating factors: none Associated symptoms: headaches Treatments prior to arrival: none Related Data Previous Rx's ?Medication ?Instructions ?Recorded cefuroxime axetil 250 mg tablet 250 mg PO BID 7 days #14 tabs 10/26/23 ondansetron 4 mg disintegrating 4 mg PO Q8H 3 days #9 tabs 10/26/23 tablet pyridoxine (vitamin B6) 10 mg 10 mg PO DAILY #14 tabs 10/26/23 tablet Allergies Allergy/AdvReac Type Severity Reaction Status Date / Time No Known Allergies Allergy Unverified 02/18/24 05:15 seasonal Allergy Unknown Itchy Eyes Uncoded 02/18/24 05:15 Review of Systems 2 Constitutional: Constitutional: Reports no additional constitutional complaints, Denies chills, Denies fever(s), Reports headache(s) and Denies night sweats Eyes: Eyes: Reports no additional eye complaints, Denies blurry vision, Denies change in vision, Denies diplopia, Denies eye discharge, Denies loss of vision and Denies eye pain ENT: Denies dizziness, Reports headache(s) and Reports nasal congestion Cardiovascular: Cardiovascular: Reports no additional cardiovascular complaints, Denies chest pain, Denies lightheadedness, Denies Loss of Consciousness and Denies dyspnea Respiratory: Respiratory: Reports no additional respiratory complaints and Denies dyspnea Gastrointestinal: Gastrointestinal: Reports no additional gastrointestinal complaints, Denies abdominal pain, Denies melena, Denies hematochezia, Denies change in bowel habits and Denies change in stool character Genitourinary: Genitourinary: Denies hematuria, Denies urinary frequency, Denies dysuria, Denies urinary incontinence, Denies urinary hesitancy and Denies urinary urgency Musculoskeletal: Musculoskeletal: Reports no additional musculoskeletal complaints, Reports back pain (right sided), Denies numbness and Denies tingling Neurologic: Denies dizziness, Reports headache(s), Denies loss of vision, Denies numbness and Denies tingling Psychiatric: Psychiatric: Reports no additional psychiatric complaints Endocrine: Endocrine: Reports no additional endocrine complaints Hematologic/Lymphatic: Hematologic/Lymphatic: Reports no additional hematologic/lymphatic complaints Allergic/Immunologic: Allergic/Immunologic: Reports no additional allergic/immunologic complaints PMFSH Past Medical History Attestation statement: The following information was validated with the patient. (all information validated with the patient's partner) Source: old records reviewed, nursing notes reviewed and other (patient's partner provided additional history and confirmed the history provided by the patient.) Social History Social History Smoked in Last 30 Days: No Use of substances other than those prescribed or required for medical reasons: No Advance Directives: No Advance Directives Information Provided: No Patient : Yes Physical Exam ED Vital Signs: Vital Signs - 24 hr 02/18/24 05:12 02/18/24 05:44 02/18/24 06:14 Temperature 98.9 F 98.9 F Pulse Rate 118 H 116 H Respiratory Rate 18 16 Blood Pressure 119/52 L 108/56 L Pulse Oximetry 97 98 98 Oxygen Delivery Method Room Air Room Air Room Air 02/18/24 08:17 Temperature 99.8 F Pulse Rate 124 H Respiratory Rate 18 Blood Pressure 103/55 L Pulse Oximetry 98 Oxygen Delivery Method Room Air BMI result Body Mass Index 22.2 Const General: cooperative, no acute distress, alert and awake Nutritional Appearance: well nourished Orientation/consciousness: patient oriented x3 Limitations: no limitations HENMT Head: Yes normal to inspection and Yes atraumatic Ears: hearing grossly normal bilaterally and external ears normal General nose exam: Normal external nose present, no nasal discharge noted and no epistaxis Face and sinus: Yes normal facial exam, No abrasion and No laceration Mouth: Normal oral and palatal mucosa present, no drooling and no muffled voice Eyes General: appearance normal, both eyes and all related structures Periorbital: periorbital findings normal Eyelids: Yes eyelids normal Conjunctivae: conjunctivae normal Pupils: Equal, round and reactive pupils present EOM: EOMs intact bilaterally Neck Neck: Yes normal visual inspection, Yes full ROM and Yes no lymphadenopathy Chest Chest palpation & inspection: normal inspection of the chest Resp Effort & Inspection: normal respiratory effort and able to speak in complete sentences Cardio Rate: tachycardic Rhythm: regular rhythm GI Inspection: Yes normal to inspection Neuro General: patient oriented x3 and moves all extremities Cranial nerves: Yes Equal, round and reactive pupils present Cognition (Neuro): normal cognition Extrem General: Yes normal to inspection, Yes full ROM and Yes capillary refill normal Psych Appearance: grossly normal Mental Status: mental status grossly normal Affect: normal affect Attitude: cooperative Thought process: Normal thought process present Thought content: Normal thought content present Insight: Good insight present (Psych) Medications Administered Generic Name Dose Route Start Last Admin Trade Name Freq PRN Reason Stop Dose Admin Sodium Chloride 1,000 mls @ 999 mls/hr 02/18/24 09:30 02/18/24 09:31 Ns IV 02/18/24 10:30 999 mls/hr .Q1H1M RADHA Administration Discontinued Medications Generic Name Dose Route Start Last Admin Trade Name Freq PRN Reason Stop Dose Admin Ceftriaxone Sodium 1 gm/ 50 mls @ 100 mls/hr 02/18/24 09:18 02/18/24 09:34 Sodium Chloride IV 02/18/24 09:47 100 mls/hr ONCE ONE Administration Acetaminophen 1,000 mg in 100 mls @ 400 mls/hr 02/18/24 09:18 02/18/24 09:31 Ofirmev IV 02/18/24 09:32 400 mls/hr ONCE ONE Administration Medical Decision Making Medical Decision Making [facility] Narrative: Patient is a 18 year old assigned female at with a history of current (20 weeks) presenting to the emergency department today with right sided low back pain, nasal congestion, and a headache. Patient's physical exam showed tachycardia and hear tones of 153-163bpm. Patient's blood work showed a hgb of 9.7. Patient's urine showed no acute process. Patient's EKG was unremarkable. Patient's renal US showed a right mild-moderate hydronephrosis. Patient's temperature became more elevated as she was here but not considered febrile. Patient was tachycardic throughout her time here. Concern for possible obstructing kidney stone. IV antibiotics and Tylenol given. I spoke to Dr. Calix at [facility] who recommended transfer to [facility] for further evaluation by their OBGYN team. I explained my physical exam findings as well as all test results to the patient and the patient's partner. I answered all questions asked by the patient and the patient's partner. Patient and the patient's partner verbalized agreement and understanding with this treatment plan and transfer to [facility]. Differential Diagnosis Differential Diagnoses: The differential diagnosis associated with the presentation includes Obstructing kidney stone Flank pain Admission/Observation Consideration of admission/observation: Escalation of care including admission/observation considered Patient transferred to [facility] Consult Healthcare Provider Management of the patient was discussed with: Internal Specialist (spoke to OBGYN provider Dr. Calix as noted in the MDM Rationale portion of this note.) Lab Data [facility] Lab Attestation statement: I reviewed the patient's lab results. My interpretation of these results are in the MDM Rationale portion of this note. 02/18/24 06:41 02/18/24 06:41 Labs: Lab Results 02/18/24 02/18/24 02/18/24 Range/Units 05:19 06:41 08:14 WBC 9.3 (4.8-10.8) X10*3/uL RBC 2.98 L D (4.20-5.50) X10*6/uL Hgb 9.7 L D (12.0-16.0) g/dl Hct 27.9 L D (37.0-47.0) % MCV 93.6 (80.0-98.0) fL MCH 32.6 (27.0-33.0) pg MCHC 34.8 (31.0-35.0) g/dl RDW 12.7 (11.0-16.0) % Plt Count 171 D (160-400) X10*3/uL MPV 10.8 (9.4-12.3) fL Immature Gran % (Auto) 2.2 H (0.0-0.4) % Neut % (Auto) 77.0 H (45-73) % Lymph % (Auto) 10.7 L (20-40) % [place] % (Auto) 9.2 (2-11) % Eos % (Auto) 0.6 (0-4) % Baso % (Auto) 0.3 (0-2) % Lymph # (Auto) 1.0 L (1.2-4.9) X10*3/uL [place] # (Auto) 0.9 (0.1-1.2) X10*3/uL Eos # (Auto) 0.1 (0.0-0.4) X10*3/uL Baso # (Auto) 0.0 (0.0-0.2) X10*3/uL Abs Immat Gran (auto) 0.20 H (0.00-0.03) X10*3/uL Absolute Neuts (auto) 7.2 (2.0-8.3) x10*3/uL Absolute Nucleated RBC 0.000 (0.0-0.012) X10*3/uL Nucleated RBC % (auto) 0.0 (0.0-0.2) /100WBC Sodium 137 (135-145) mmol/L Potassium 3.5 D (3.3-5.1) mmol/L Chloride 109 H (96-108) mmol/L Carbon Dioxide 21 L (22-29) mmol/L Anion Gap 11 L (12-20) BUN 4 L (9-16) mg/dL Creatinine 0.54 (0.5-1.4) mg/dL Estim Creat Clear Calc 107.3 Estimated GFR > 60 Random Glucose 98 (60-115) mg/dL Calcium 9.0 D (8.4-10.2) mg/dL Total Bilirubin 0.4 (0.0-1.0) mg/dL AST 26 (5-31) U/L ALT 30 (0-31) U/L Alkaline Phosphatase 49 (39-117) U/L B-Natriuretic Peptide 18 (<100) pg/mL Total Protein 6.7 (6.5-8.0) g/dL Albumin 3.6 (3.5-5.0) g/dL TSH 0.49 (0.32-4.0) uIU/mL Urine Color Yellow Urine Appearance Clear Urine pH 7.0 (5.0-9.0) Ur Specific [place] <= 1.005 (1.005-1.025) Urine Protein Negative (Neg-Trace) mg/dL Urine Glucose (UA) Negative (Negative) mg/dL Urine Ketones Negative (Negative) mg/dL Urine Blood Negative (Negative) Urine Nitrite Negative (Negative) Ur Leukocyte Esterase Small (1+) H (Negative) Urine RBC 0-2 (0-2) /HPF Urine WBC 0-5 (0-5) /HPF Ur Squamous Epith Cells 6-10 (0-2) /HPF Urine Bacteria Trace (None Seen) Hyaline Casts 0-2 (0-2) /LPF Influenza Type A (PCR) NEGATIVE (Negative) Influenza Type B (PCR) NEGATIVE (Negative) RSV RNA Qual (PCR) NEGATIVE (Negative) SARS-CoV-2 RNA (RT-PCR) NEGATIVE (Negative) S. pyogenes GrpA CORI Negative (Negative) Independent Interpretation I performed an independent interpretation of an: Ultrasound Interpretation: My interpretation is in agreement with the radiologist's impression of this imaging study. L EXAMINATION: US RENAL B/L CLINICAL INFORMATION: Acute flank pain, , concern for stone COMPARISON: None available. TECHNIQUE: Real-time imaging of the kidneys and bladder. FINDINGS: RIGHT KIDNEY: 9.9 x 5.3 x 5.1 cm (SAG x AP x TRV). The kidney is normal in size, contour, and echogenicity. Renal cortical thickness is normal. No calculi or focal parenchymal lesions. Mild to moderate right-sided hydronephrosis. Right ureter could not be visualized due to overlying bowel gas. LEFT KIDNEY: 10.8 x 5.5 x 4.7 cm (SAG x AP x TRV). The kidney is normal in size, contour, and echogenicity. Renal cortical thickness is normal. No calculi or focal parenchymal lesions. No hydronephrosis. BLADDER: Partially distended. Bilateral ureteral jets are not visualized. US/US renal BI IMPRESSION: [id number] right-sided hydronephrosis. No renal calculus. Right ureter could not be visualized due to overlying bowel gas. Bilateral ureteral jets are not visualized. Electronically signed by: Louis Mendoza MD 02/18/2024 08:56 AM EDT Dictated By: Louis Mendoza Signed By: Electronically signed by Louis Mendoza 02/18/24 0856 Vent. Rate: 126 BPM Atrial Rate: 126 BPM P-R Int: 154 ms QRS Dur: 078 ms QT Int: 314 ms P-R-T Axes: 065 065 024 degrees QTc Int: 454 ms Sinus tachycardia with Premature ventricular complexes or Fusion complexes Nonspecific T wave abnormality Abnormal ECG No previous ECGs available DD/ [id number] Radiology Impression Discussion of test interpretation with radiology: I have reviewed the radiologist's reading. Critical Care Time Critical Care Time Critical Care Time: Yes Total Critical Care Time: 42 Attestation: I spent 42 minutes of Critical Care Time with this patient. This does not include time spent on separately reported billable procedures. Discharge Plan Discharge Clinical Impression: Hydronephrosis, Acute flank pain, Second trimester Patient Disposition: [facility] Transfer Details: [facility] Women's Instructions: (ED), Flank Pain (ED), Hydronephrosis (ED) Prescriptions: No Action ondansetron 4 mg tablet,disintegrating 4 mg PO Q8H 3 Days Qty: 9 0RF pyridoxine (vitamin B6) 10 mg tablet 10 mg PO DAILY Qty: 14 0RF cefuroxime axetil 250 mg tablet 250 mg PO BID 7 Days Qty: 14 0RF Print Language: Czech
[2024-02-18 06:45] LABS: MANUAL DIFF FLAG NO
[2024-02-18 06:49] LABS: Appearance Urine Clear; Color Urine Yellow; Glucose Urine UA Negative (Negative); Leukocyte Esterase Urine Small (1+) (Negative); Nitrite Urine Negative (Negative); Specific Gravity - Urine <= 1.005 (1.005-1.025); UMIC TRIGGER UACC YES; Urine Blood Negative (Negative); Urine Ketones Negative (Negative); Urine Protein Negative (Neg-Trace)
[2024-02-18 06:54] LABS: Basophils Percent Auto 0.3 % (0-2); Eosinophils Absolute Auto 0.1 X10*3/uL (0.0-0.4); Eosinophils Percent Auto 0.6 % (0-4); Hematocrit 27.9 % (37.0-47.0); Hemoglobin 9.7 g/dl (12.0-16.0); Imm Gran Pct Auto 2.2 % (0.0-0.4); Lymphocytes Percent Auto 10.7 % (20-40); Mean Corpuscular HGB Conc 34.8 g/dl (31.0-35.0); Mean Corpuscular Hemoglobin 32.6 pg (27.0-33.0); Mean Corpuscular Volume 93.6 fL (80.0-98.0); Mean Platelet Volume 10.8 fL (9.4-12.3); Monocytes Absolute Auto 0.9 X10*3/uL (0.1-1.2); Monocytes Percent Auto 9.2 % (2-11); Neutrophils Absolute Auto 7.2 x10*3/uL (2.0-8.3); Platelet Count 171 X10*3/uL (160-400); Red Blood Count 2.98 X10*6/uL (4.20-5.50); Red Cell Distribution Width 12.7 % (11.0-16.0); White Blood Count 9.3 X10*3/uL (4.8-10.8)
[2024-02-18 07:00] LABS: Bacteria Urine Trace (None Seen); Hyaline Casts Urine 0-2 /LPF (0-2); RBC Urine 0-2 /HPF (0-2); UACC Culture Trigger YES; WBC Urine 0-5 /HPF (0-5)
[2024-02-18 07:03] LABS: Alanine Aminotransferase 30 U/L (0-31); Albumin Level 3.6 g/dL (3.5-5.0); Alkaline Phosphatase 49 U/L (39-117); Anion Gap 11 (12-20); Aspartate Amino Transferase 26 U/L (5-31); Bilirubin Total 0.4 mg/dL (0.0-1.0); Blood Urea Nitrogen 4 mg/dL (9-16); Carbon Dioxide 21 mmol/L (22-29); Chloride 109 mmol/L (96-108); Creatinine Clr Calc Pharmacy 107.3; Estimated Glomerular Filt Rate > 60; Glucose Random 98 mg/dL (60-115); Potassium 3.5 mmol/L (3.3-5.1); Sodium 137 mmol/L (135-145); Total Protein 6.7 g/dL (6.5-8.0)
--- NOTE | 2024-02-18 07:07 | ECG_ITS ---
Test Reason : TACHYCARDIA Blood Pressure : / mmHG Vent. Rate : 126 BPM Atrial Rate : 126 BPM P-R Int : 154 ms QRS Dur : 078 ms QT Int : 314 ms P-R-T Axes : 065 065 024 degrees QTc Int : 454 ms Sinus tachycardia with Premature ventricular complexes or Fusion complexes Nonspecific T wave abnormality Abnormal ECG No previous ECGs available Referred By: Mitzi Maldonado Electronically Signed By:SRAVANI EASLEY
--- NOTE | 2024-02-18 07:39 | PC.NURSE ---
u/s at bedside at this time unable to complete EKG
[2024-02-18 08:33] LABS: B Type Natriuretic Peptide 18 pg/mL (<100)
[2024-02-18 08:39] LABS: IDNOW Serial# 08D9AD1C; Strep A Nucleic Acid Negative (Negative)
[2024-02-18 08:46] LABS: TSH reflex Free T4 0.49 uIU/mL (0.32-4.0)
[2024-02-18] MEDS: 0.9 % Sodium Chloride 1,000 ML 999 ML IV (09:31)
[2024-02-18] MEDS: Acetaminophen 1,000 MG/100 ML PIGGYBACK 400 MG IV (09:31)
[2024-02-18] MEDS: cefTRIAXone sodium 1 GM in 0.9 % Sodium Chloride 50 ML IV (09:34)
--- NOTE | 2024-02-18 09:38 | PC.NURSE ---
+ heart tones [phone]
== END 2024-02-18 11:00 | disposition short-term general hospital (02) ==
PROVIDERS: Physician Assistant Medical; Emergency Provider Emergency Medicine; PCP Internal Medicine
DX: O99.891 Other specified diseases and conditions complicating pregnancy (principal); M54.50 Low back pain, unspecified; R09.81 Nasal congestion; R51.9 Headache, unspecified; N13.30 Unspecified hydronephrosis; R10.9 Unspecified abdominal pain; Z3A.20 20 weeks gestation of pregnancy; Z03.818 Encounter for observation for suspected exposure to other biological agents ruled out; Z79.899 Other long term (current) drug therapy
CPT/HCPCS: 0241U; 36415; 76775; 80053; 81001; 83880; 84443; 85025; 87086; 87651; 93005; 93970; 96365; 96375; 99285; J0131; J0696